=== PATIENT | male | born 1955 | race Caucasian/White ===

== ENCOUNTER 2020-11-18 13:46 | Inpatient (IN) | payer OTHER ==
[~2020-11-18] VITALS: Ht 172.7 cm; Wt 65.0 kg
--- NOTE | ~2020-11-18 | CON ---
[address] [address] CONSULTATION Name: TY CASH Room: [address] IN M.R.#: [id number] Admission: 11/18/20 Attend Phys: Nia Sanchez MD Discharge: Date of : 53 Report #: [id number] THIS REPORT FOR: cc: [facility] - Clinic physician unknown [facility] - Clinic physician unknown Jonny Ladd MD ~ DOC #: [id number] Jonny Ladd MD DATE OF CONSULTATION: 11/19/2020 HISTORY OF PRESENT ILLNESS: This is a 65-year-old male patient who is unable to provide any history at all. I tried to call the patient's lifetime partner, whose number is in the chart, but she did not answer the phone. It looks like this patient is a heavy drinker. This is all the history is from the record. He was severely agitated according to the 1:1 person and he just went to sleep. Therefore, I did not wake him up. It looks like the patient stopped drinking and he had a seizure. He was without alcohol for a day. He has been given Ativan and has not had any further seizure. REVIEW OF SYSTEMS: A 14-point review of system is only from the record and only emergency room physician note is available. Apparently, he has a history of hypertension and prostate problem. I tried to get 14-point review of system in this patient from the record, but I cannot get it. PAST MEDICAL HISTORY: Positive for heavy alcohol drinking. FAMILY HISTORY: I cannot tell if there is a family history of seizure or not. We will continue to make an effort to reach the family. SOCIAL HISTORY: Heavy alcohol intake. PHYSICAL EXAMINATION: The patient's examination is limited. He is finally sleeping. He does not respond to anything. I did not try to wake him up. There is no meningeal sign. His reflexes are elicitable. Cardiac examination is unremarkable. That is all the examination which is possible. He appeared to be moderately built individual. He has no thyroid mass or any carotid bruit. His respiration appear to be intact. He does not have any edema, cyanosis or jaundice. Blood pressure is 162/97, pulse is 102, temperature is 98.3. IMAGING DATA: He had a CT scan of the head done, which does not show any acute abnormality. IMPRESSION: 1. Alcohol withdrawal seizure. 2. [place] [address] CONSULTATION Name: CASHEMILYTY Rafa Room: [address]#: [id number] Admission: 11/18/20 Attend Phys: Nia Sanchez MD Discharge: Date of : 53 Report #: [id number] RECOMMENDATIONS: 1. We will get an EEG done in this patient. 2. It is better to treat the seizures with Ativan, which he is getting. If the seizure become more frequent, then we can consider Keppra. Presently, we will watch until the EEG shows some seizure activity. I will try to continue to reach family to get any history if I can get. Thank you very much for this referral. MD KIANNA Brown/RIVERA/LUCHO By: [id number] Ladd MD /nt
--- NOTE | ~2020-11-18 | EEG ---
[address] [address] EEG STUDY REPORT Name: TY CASH Room: [address] IN .R.#: [id number] Admission: 11/18/20 Attend Phys: Nia Sanchez MD Discharge: Date of : 53 Report #: [id number] THIS REPORT FOR: cc: [facility] - Clinic physician unknown [facility] - Clinic physician unknown Jonny Ladd MD ~ DOC #: [id number] Jonny Ladd MD DATE OF SERVICE: 11/19/2020 This patient had a seizure. EEG is being done to evaluate that. EEG was done by placing the electrode by standard 10-20 system of electrode placement. Both referential and sequential montages were used for recording. The patient's EEG demonstrates a background activity of 9 Hz and 30 microvolt. Photic stimulation is unremarkable. The patient became drowsy and that is associated with bilateral slowing and vertex sharp waves. Throughout the record, no active epileptiform activity was noticed. IMPRESSION: This patient's EEG is intermixed with some theta range slowing, but otherwise was unremarkable. Thank you very much for this referral. Jonny Ladd MD PK/GAU By: [id number] Ladd MD /nt
[2020-11-18 13:50] VITALS: BP 142/91
[2020-11-18] MEDS ORDERED: BPH (13:55)
[2020-11-18] MEDS ORDERED: LISINOPRIL10 MG PO (13:55)
[2020-11-18 14:10] LABS: HEMATOCRIT 41.7 % (42.0-52.0); HEMOGLOBIN 13.7 gm/dL (14.0-18.0); MCH 25.5 pg (26.0-34.0); MCV 77.2 fL (80.0-100.0); NUCLEATED RBCS 0 /100WBC; PLATELET COUNT* 158 thou/uL (150-400); RDW-CV 22.2 % (10.5-14.5)
[2020-11-18 14:20] LABS: CALCIUM 9.8 mg/dL (8.5-10.1); CREATININE 1.3 mg/dL (0.6-1.3)
[2020-11-18 14:23] LABS: POTASSIUM 2.7 mmol/L (3.5-5.1)
[2020-11-18 14:24] LABS: ALBUMIN 4.2 g/dL (3.4-5.0); TOTAL BILIRUBIN 1.1 mg/dL (<0.1-1.0); TOTAL PROTEIN 8.2 g/dL (6.4-8.2)
[2020-11-18 14:25] LABS: URINE BILIRUBIN NEGATIVE (Negative); URINE BLOOD 3+ (Negative); URINE CLARITY CLEAR; URINE COLOR YELLOW; URINE GLUCOSE-RANDOM NEGATIVE (Negative); URINE LEUKOCYTES-REFLEX NEGATIVE (Negative); URINE NITRITE-REFLEX NEGATIVE (Negative); URINE PROTEIN 2+ (Negative); URINE SPECIFIC GRAVITY >= 1.030 (1.005-1.030)
[2020-11-18 14:26] LABS: URINE KETONES 3+ (Negative)
[2020-11-18 14:37] LABS: HYALINE CASTS 4-10 Moderate /LPF (None Seen); MUCUS 0-3 Light strn/LPF (None Seen); SQUAMOUS 0-3 Few /LPF (0-3)
[2020-11-18 14:38] LABS: AMP/METHAMP Negative (Negative); BARBITURATES Negative (Negative); BENZODIAZEPINES Negative (Negative); COCAINE Negative (Negative); METHADONE Negative (Negative); OPIATES Negative (Negative); PCP Negative (Negative); THC Negative (Negative)
[2020-11-18 14:39] LABS: BACTERIA-REFLEX None Seen /HPF (None Seen); CRYSTALS None Seen /LPF (None Seen); URINE RBC 3-10 Few /HPF (0-2); URINE WBC-REFLEX 0-5 Rare /HPF (0-5)
[2020-11-18 14:54] LABS: ABSOLUTE MONOCYTES 0.2 thou/uL (0.0-1.2); ABSOLUTE NEUTROPHILS 9.8 thou/uL (1.6-8.1); ANISOCYTOSIS 2+; PLATELET ESTIMATE ADEQUATE
[2020-11-18 14:55] LABS: MICROCYTES 1+
[2020-11-18 18:06] VITALS: BP 153/87
[2020-11-18 19:02] VITALS: BP 165/91
[2020-11-19 00:13] VITALS: BP 149/85
[2020-11-19 05:31] VITALS: BP 180/98
[2020-11-19 07:45] VITALS: BP 162/97
[2020-11-19 13:10] VITALS: BP 161/92
--- NOTE | 2020-11-19 13:55 | EKG ---
[place] [address] ELECTROCARDIOGRAM REPORT Name: TY CASH Rafa Room: [address] ADM IN M.R.#: [id number] Admission: 11/18/20 Attend Phys: Nia Sanchez, Discharge: Date of : 53 Date of Service: 11/18/20 1409 Report #: [id number] THIS REPORT FOR: //name// [facility] ED Test Date: 2020-11-18 Test Time: 14:09:58 Pat Name: TY CASH Department: Room: [facility] Gender: M [employer] Repairer: UDAY : 1955 Requested By: Slick Moore Order Number: [id number] MD: Manny John Measurements Intervals [place] Rate: 106 P: 79 MA: 137 QRS: 50 QRSD: 89 T: 61 QT: 353 QTc: 469 Interpretive Statements Sinus tachycardia Baseline wander in lead(s) V2 No previous ECG available for comparison Electronically Signed On 11-19-2020 13:55:31 CDT by Manny John [email or web address] <ELECTRONICALLY SIGNED> By: Manny John MD, [facility] 11/19/20 1355 1409 1409 Manny John MD, [facility] /EPI
[2020-11-19 20:00] VITALS: BP 168/97
[2020-11-20 02:25] LABS: HEMATOCRIT 37.4 % (42.0-52.0); MCH 25.5 pg (26.0-34.0); MCHC 32.1 g/dL (28.0-37.0); MCV 79.4 fL (80.0-100.0); MPV 6.7 fl. (7.2-11.1); RBC 4.7 mil/uL (4.50-6.00); RDW-CV 21.6 % (10.5-14.5); WBC 5.9 thou/uL (4.0-11.0)
[2020-11-20 02:40] LABS: ALBUMIN 3.5 g/dL (3.4-5.0); CALCIUM 8.4 mg/dL (8.5-10.1); TOTAL BILIRUBIN 0.5 mg/dL (<0.1-1.0); TOTAL PROTEIN 6.5 g/dL (6.4-8.2)
[2020-11-20 02:48] LABS: POTASSIUM 3.9 mmol/L (3.5-5.1)
[2020-11-20 04:00] VITALS: BP 177/110
[2020-11-20 08:29] VITALS: BP 166/90
[2020-11-20 12:29] VITALS: BP 162/98
[2020-11-20 17:26] VITALS: BP 150/93
== END 2020-11-20 20:03 | disposition short-term general hospital (02) | DRG 100 ==
LOC: M.ERS 13:46 → M.2W 16:06 → M.TBA-ER 16:06 → M.2W 18:07
PROVIDERS: Emergency Medicine Emergency Medical Services; ADMIT Internal Medicine; ATTEND Internal Medicine
DX: G40.509 Epileptic seizures related to external causes, not intractable, without status epilepticus (principal); G92 Toxic encephalopathy; F10.239 Alcohol dependence with withdrawal, unspecified; E87.6 Hypokalemia; I10 Essential (primary) hypertension; N40.0 Benign prostatic hyperplasia without lower urinary tract symptoms; Y90.9 Presence of alcohol in blood, level not specified; F17.210 Nicotine dependence, cigarettes, uncomplicated; R33.9 Retention of urine, unspecified; Z20.822 Contact with and (suspected) exposure to COVID-19; Z79.899 Other long term (current) drug therapy